=== PATIENT | female | born 1960 | race Caucasian/White ===

== ENCOUNTER → 2020-06-12 | Outpatient (CLI) | payer OTHER | LOC: MC.RAD 10:32 | DX: Z12.31 Encounter for screening mammogram for malignant neoplasm of breast (principal) ==

== ENCOUNTER → 2022-04-26 | Outpatient (CLI) | payer OTHER | LOC: MC.RAD 07:26 | DX: Z12.31 Encounter for screening mammogram for malignant neoplasm of breast (principal) ==

== ENCOUNTER 2023-09-08 05:25 | Day surgery (SDC) | payer OTHER ==
[~2023-09-08] VITALS: Ht 157.5 cm; Wt 73.0 kg
[2023-09-08] MEDS ORDERED: LR 1,000 ML IV SCH (06:00)
[2023-09-08] MEDS ORDERED: PRIL40 PO (06:26)
[2023-09-08] MEDS ORDERED: JANUVIA 100MG100 MG PO (06:27)
[2023-09-08] MEDS ORDERED: PRINIVIL5 MG PO (06:28)
[2023-09-08] MEDS ORDERED: TOPROL XL 25MG25 MG PO (06:28)
[2023-09-08] MEDS ORDERED: GLUCOPHAGE1000 MG PO (06:28)
[2023-09-08 06:29] VITALS: BP 152/82; PULSE 90; TEMP 98.6
--- NOTE | 2023-09-08 06:31 | NUR ---
Pt arrived with for procedure, VSS and WNL, RR even and unlabored, blood glucose 210, reviewed meds/history/allergies/pharm; consents reviewed and signed, no questions/concerns; 20G IV placed to LH without incident, LR hanging to TKO.
[2023-09-08] MEDS ORDERED: Lidocaine PF 2% (20 MG/ML) 10 ML POLY AMP IJ ONE ×2 (07:48)
[2023-09-08 08:30] VITALS: BP 122/73; PULSE 79; TEMP 97.2
[2023-09-08 09:00] VITALS: BP 138/72; PULSE 79
--- NOTE | 2023-09-08 11:38 | NUR ---
0830- PT RETURNS FROM PROCEDURE TO BAY 7. MONITORS ON AND ALARMS SET. CALL LIGHT WITHIN REACH. REPORT RECEIVED FROM YING CHRISTIANSON. PT DROWSY, OPENING EYES TO NAME BEING CALLED. PT DENIES ANY PAIN OR NAUSEA. 0845- PT REQUESTED FOOD AND DRINK. PT TOLERATED WELL. 0900- PT AMBULATED TO BATHROOM WITH NO ISSUES. 0945- DISCHARGE INSTRUCTIONS GIVEN TO PT. ALL QUESTIONS ANSWERED. 1000- PT TRANSFERRED OUT OF THE HOSPITAL VIA WHEELCHAIR TO PRIVATE VEHICLE DRIVEN BY .
== END 2023-09-08 10:00 | disposition home or self-care (01) ==
LOC: SDCO 05:25
DX: M20.11 Hallux valgus (acquired), right foot (principal); M21.611 Bunion of right foot; Q79.9 Congenital malformation of musculoskeletal system, unspecified
CPT/HCPCS: C1713; J0665; J0690; J2704; J7120

== ENCOUNTER → 2023-10-27 | Outpatient (CLI) | payer OTHER ==
[~2023-10-27] MED LIST: GLUCOPHAGE1000 MG PO; JANUVIA 100MG100 MG PO; PRIL40 PO; PRINIVIL5 MG PO; TOPROL XL 25MG25 MG PO
== END ==
LOC: MC.RAD 14:21
DX: Z12.31 Encounter for screening mammogram for malignant neoplasm of breast (principal)